=== PATIENT | male | born 1980 | race Caucasian/White ===

== ENCOUNTER 2025-05-07 20:03 | Observation (INO) ==
[2025-05-07 21:00] LABS: BASOPHILS % (AUTO) 0.2 %; HCT - HEMATOCRIT 43.3 % (42.0-52.0); HGB - HEMOGLOBIN 14.8 g/dL (14.0-18.0); LYMPHOCYTES # (AUTO) 0.9 10^3/uL (1.5-3.5); LYMPHOCYTES % (AUTO) 6.1 %; MEAN CORPUSCULAR HEMOGLOBIN 30.2 pg (27.0-31.0); MEAN CORPUSCULAR HGB CONC 34.2 g/dL (32.0-36.0); MEAN CORPUSCULAR VOLUME 88.4 fL (80.0-94.0); MEAN PLATELET VOLUME 9.8 fL (7.4-11.4); MONOCYTES # (AUTO) 0.7 10^3/uL (0.0-1.0); MONOCYTES % (AUTO) 4.8 %; NEUTROPHILS # (AUTO) 12.3 10^3/uL (1.5-6.6); NEUTROPHILS % (AUTO) 88.5 %; PLT - PLATELET COUNT 273 10^3/uL (130-450); RED CELL DISTRIBUTION WIDTH 13.4 % (12.0-15.0); WHITE BLOOD COUNT 13.9 x10^3/uL (4.8-10.8)
--- NOTE | 2025-05-07 21:01 | ED Physician Documentation ---
PD HPI ABD PAIN Stated complaint Stated Complaint: N/V/D Chief complaint Chief Complaint: Abd Pain Additional information Additional information: HPI from patient. Patient complains of of 1-2 days of nausea and vomiting and increasingly frequent diarrhea. He has had 2 episodes of loss of bowel control. He has been having generalized abdominal cramping as well as fever Tmax 103.7. Patient is up-to-date on immunizations. He is nausea and vomiting progressed this evening to the point of not be able to tolerate any p.o. including sips of water. Denies history of similar symptoms. Has not noted any blood in vomitus nor in the stool, denies black/tarry stool. No recent [id number] travel, does not drink alcohol on heavy nor regular basis, does not take NSAIDs on regular basis. Meds/Allgy Home Medications Ambulatory Orders Medication Instructions Recorded Confirmed rizatriptan 10 mg disintegrating mg 05/07/25 tablet venlafaxine 150 mg mg PO 05/07/25 capsule,extended release 24 hr Allergies Allergies Allergy/AdvReac Type Severity Reaction Status Date / Time No Known Drug Allergies Allergy Verified 05/07/25 20:20 PFSH Active Problems All Active Problems (Updated 05/08/25 @ 05:24 by Nallely Multani MD) Sepsis (Acute) Hypertension (Acute) Acute colitis (Acute) Colitis (Acute) Social History Social History (Updated 05/08/25 @ 05:33 by Nallely Multani MD) Smoking Status: Former smoker If you are a former smoker, when did you quit? (Date/Year): 2010 Number of Years Smoked: 15 Do you dip or chew tobacco?: No Do you vape?: No Patient requests smoking cessation consult: No Initiate information on smoking cessation: No Level: Dependent Do you feel safe in your home environment?: Yes Suffered physical, verbal, emotional, or financial abuse?: No Exam Exam Vital Signs: Vital Signs x48h Temp Pulse Resp BP Pulse Ox 05/08/25 02:38 122/80 05/08/25 02:21 103 H 16 105/74 90 L 05/08/25 00:41 38.4 C H 95 16 118/77 95 Constitutional normal general appearance, no apparent distress and alert HENMT oral mucous membranes abnormal (dry) Respiratory breath sounds equal bilaterally, clear to auscultation bilaterally, no wheezes and no rales Cardiovascular normal heart rate noted, regular rhythm noted, no gallop, no rub, no murmur and no edema Gastrointestinal abdomen normal to inspection, abdomen soft to palpation, nontender to palpation, nondistended, normoactive bowel sounds and no hernia Genitourinary no CVA tenderness Skin skin color normal Results Vitals Vitals: Vital Signs - 24 hr 05/07/25 20:14 05/07/25 21:25 05/07/25 21:36 Temperature 39.2 C H Temperature Source Tympanic Pulse Rate 125 H 100 Respiratory Rate 18 20 Blood Pressure 120/81 126/80 O2 Saturation 95 93 O2 Source Room air Room air Pain Intensity 7 6 05/07/25 22:40 05/08/25 00:30 05/08/25 00:41 Temperature 38.4 C H Temperature Source Tympanic Pulse Rate 95 Respiratory Rate 16 Blood Pressure 118/77 O2 Saturation 95 O2 Source Room air Pain Intensity 3 6 5 05/08/25 02:07 05/08/25 02:07 05/08/25 02:21 Temperature Temperature Source Pulse Rate Respiratory Rate Blood Pressure O2 Saturation O2 Source Pain Intensity 6 7 5 05/08/25 02:21 05/08/25 02:38 Temperature Temperature Source Pulse Rate 103 H Respiratory Rate 16 Blood Pressure 105/74 122/80 O2 Saturation 90 L O2 Source Room air Pain Intensity 5 Oxygen O2 Source Room air Labs Labs: Laboratory Tests 05/07/25 05/07/25 05/07/25 20:40 21:14 22:30 WBC 13.9 H RBC 4.90 Hgb 14.8 Hct 43.3 MCV 88.4 MCH 30.2 MCHC 34.2 RDW 13.4 Plt Count 273 MPV 9.8 Neut # (Auto) 12.3 H Lymph # (Auto) 0.9 L Pleas[place] # (Auto) 0.7 Eos # (Auto) 0.0 Baso # (Auto) 0.0 Absolute Nucleated RBC 0.00 Nucleated RBC % 0.0 Sodium 132 L Potassium 4.0 Chloride 97 L Carbon Dioxide 27 Anion Gap 8.0 BUN 15 Creatinine 1.1 Estimated GFR (MDRD) 73 L Glucose 99 Calcium 9.5 Total Bilirubin 0.5 AST 19 ALT 19 Alkaline Phosphatase 34 L Total Protein 7.8 Albumin 4.4 Globulin 3.4 Albumin/Globulin Ratio 1.3 Lipase < 10 L Urine Color DARK YELLOW Urine Clarity CLEAR Urine pH 6.0 Ur Specific Argyle 1.025 Urine Protein 100 H Urine Glucose (UA) NEGATIVE Urine Ketones NEGATIVE Urine Occult Blood SMALL H Urine Nitrite NEGATIVE Urine Bilirubin NEGATIVE Urine Urobilinogen 0.2 (NORMAL) Ur Leukocyte Esterase NEGATIVE Urine RBC 0-5 Urine WBC 0-3 Ur Squamous Epith Cells RARE Squamous Urine Bacteria None Seen Ur Microscopic Review INDICATED Urine Culture Comments NOT INDICATED Nasal Adenovirus (PCR) NOT DETECTED Nasal B. parapertussis DNA (PCR) NOT DETECTED Nasal Coronavir 229E PCR NOT DETECTED Nasal Coronavir HKU1 PCR NOT DETECTED Nasal Coronavir NL63 PCR NOT DETECTED Nasal Coronavir OC43 PCR NOT DETECTED Nasal Enterovir/Rhinovir PCR NOT DETECTED Nasal Influenza B PCR NOT DETECTED Nasal Influenza A PCR NOT DETECTED Nasal Parainfluen 1 PCR NOT DETECTED Nasal Parainfluen 2 PCR NOT DETECTED Nasal Parainfluen 3 PCR NOT DETECTED Nasal Parainfluen 4 PCR NOT DETECTED Nasal RSV (PCR) NOT DETECTED Nasal B.pertussis DNA PCR NOT DETECTED Nasal C.pneumoniae (PCR) NOT DETECTED George Human Metapneumo PCR NOT DETECTED Nasal M.pneumoniae (PCR) NOT DETECTED Nasal SARS-CoV-2 (PCR) NOT DETECTED Stl C. diff Tox B Gene NEGATIVE Rads (name of study) CT A/P with IV contrast: Relevant Findings:: Prelim report reviewed and See rad report PD Medical Decision Making ED course Complexity details: reviewed results, re-evaluated patient, considered differential and d/w patient ED course: Patient is given total of 2 L normal saline IV during ED stay. He is given IV Toradol and 4 mg IV zofran. Fever 39.2 in triage, improved to 38.4, subsequently defervesced after PO tylenol. He is given a second dose of 4 mg IV Zofran later in stay for ongoing nausea. He reported inadequate relief of his abdominal cramping with the Toradol, thus given 4 mg IV morphine. Likewise, patient reports inadequate improvement and thus given 1 mg IV Dilaudid. He reported modest relief with this intervention. Mild leukocytosis (WBC 13.9), mild hyponatremia (sodium 132), normal LFTs, normal lipase. C. difficile negative, negative respiratory PCR panel. CT A/P with IV contrast demonstrates inflammation of the terminal ileum, cecum, ascending and transverse colon. I discussed this case with the [facility], request that I first discussed the case with GI to see if patient is appropriate for [facility] or would be appropriate for transfer to higher level of care. I discussed this case with Dr. David (on-call utility repairer for [facility]). He says patient does not need transfer to another facility and would be appropriate for admit to [facility]; he is aware that GI services are not available at [facility]. His recommendation is to repeat the colitis as infectious at this point rather than inflammatory. Further testing to determine if patient has IBD can be undertaken in the outpatient setting per Dr. David. I recontacted [facility] practitioner who will admit to hospitalist service [facility] Discharge Plan Discharge Patient Disposition: [facility] DC/Xfer Condition: Stable Clinical Impression: Colitis
[2025-05-07 21:09] LABS: ALBUMIN 4.4 g/dL (3.2-5.5); ALBUMIN/GLOBULIN RATIO 1.3 (1.0-2.2); ALKALINE PHOSPHATASE 34 IU/L (42-121); ALT ALANINE AMINOTRANSFERASE 19 IU/L (10-60); AST ASPARTATE AMINOTRANSFERASE 19 IU/L (10-42); BILIRUBIN,TOTAL 0.5 mg/dL (0.2-1.0); BUN - BLOOD UREA NITROGEN 15 mg/dL (6-20); CALCIUM 9.5 mg/dL (8.5-10.3); CARBON DIOXIDE - CO2 27 mmol/L (21-32); CHLORIDE 97 mmol/L (101-111); CREATININE 1.1 mg/dL (0.6-1.3); GFR - MDRD 73 (>89); GLUCOSE 99 mg/dL (74-104); SODIUM 132 mmol/L (135-145); TOTAL PROTEIN 7.8 g/dL (6.4-8.9)
[2025-05-07] MEDS: SODIUM CHLORIDE 0.9% 1,000 ML IV STA (21:10)
[2025-05-07 21:13] LABS: LIPASE < 10 U/L (11-82)
[2025-05-07] MEDS: KETOROLAC 30 MG/ML VIAL IVP STA (21:36)
[2025-05-07] MEDS: ONDANSETRON 4 MG/2 ML VIAL IVP STA (21:36)
[2025-05-07 22:35] LABS: BILIRUBIN,URINE NEGATIVE (NEGATIVE); GLUCOSE, URINE (UA) NEGATIVE (NEGATIVE); KETONES,URINE (UA) NEGATIVE (NEGATIVE); LEUKOCYTE ESTERASE, URINE NEGATIVE (NEGATIVE); NITRITE,URINE NEGATIVE (NEGATIVE); OCCULT BLOOD,URINE SMALL (NEGATIVE); PROTEIN,URINE 100 mg/dL (NEGATIVE); UROBILINOGEN,URINE 0.2 (NORMAL) E.U./dL (NORMAL)
[2025-05-07 22:47] LABS: CLARITY,URINE CLEAR (CLEAR)
[2025-05-07 22:59] LABS: BACTERIA,URINE None Seen /HPF (None Seen); RBC,URINE 0-5 /HPF (0-5); SQUAMOUS EPITHELIAL CELL,UR RARE Squamous (<= Few); WBC,URINE 0-3 /HPF (0-3)
[2025-05-07 23:26] LABS: B. PARAPERTUSSIS- RESP PCR PAN NOT DETECTED; B. PERTUSSIS- RESP PCR PANEL NOT DETECTED; C. PNEUMONIAE- RESP PCR PANEL NOT DETECTED; CORONAVIRUS 229E-RESP PCR NOT DETECTED; CORONAVIRUS HKU1-RESP PCR NOT DETECTED; CORONAVIRUS NL63-RESP PCR NOT DETECTED; CORONAVIRUS OC43-RESP PCR NOT DETECTED; HUMAN METAPNEUMOVIRUS NOT DETECTED; INFLUENZA A- RESP PCR PANEL NOT DETECTED; INFLUENZA B - RESP PCR PANEL NOT DETECTED; M. PNEUMONIAE- RESP PCR PANEL NOT DETECTED; PARAINFLUENZA VIRUS 1 NOT DETECTED; PARAINFLUENZA VIRUS 2 NOT DETECTED; PARAINFLUENZA VIRUS 4 NOT DETECTED; RHINOVIRUS/ENTEROVIRUS NOT DETECTED; RSV- RESP PCR PANEL NOT DETECTED; SARS-CoV-2 -RESP PCR PANEL NOT DETECTED
[2025-05-08] MEDS ORDERED: iohexoL-300 100 ML VIAL ONE (00:08)
[2025-05-08] MEDS: ONDANSETRON 4 MG/2 ML VIAL IVP STA (00:30)
[2025-05-08] MEDS: MORPHINE 2 MG/ML CARPUJECT IVP STA (00:30)
[2025-05-08] MEDS: iohexoL-300 100 ML VIAL IVP ONE (00:30)
[2025-05-08] MEDS: SODIUM CHLORIDE 0.9% 1,000 ML IV STA (00:31)
--- NOTE | 2025-05-08 01:11 | CT Report ---
PROCEDURE: CT Abdomen/Pelvis W INDICATIONS: abd. pain CONTRAST: [id number] TECHNIQUE: After the administration of intravenous contrast, a CT scan of the abdomen and pelvis was performed. Images were recorded and evaluated at appropriate window settings. Reformats: coronal and sagittal. For radiation dose reduction, the following was used: automated exposure control, adjustment of mA and/or kV according to patient size. COMPARISON: None. FINDINGS: Image quality: Diagnostic. Lower chest: Bibasilar atelectasis.. Liver: No solid mass. Gallbladder: No radiopaque stones or wall thickening. Biliary tree: No intrahepatic or extrahepatic dilation, accounting for age. Spleen: No splenomegaly. Pancreas: No pancreatic ductal dilation. Adrenals: No adrenal nodule. Kidneys and ureters: No hydronephrosis. No renal cystic lesion which requires follow up. No solid mass. Stomach, bowel and peritoneum: No gastric or small bowel dilation. No abnormal wall thickening. No pathologic free fluid. There is moderate circumferential wall thickening and pericolic inflammatory changes involving the terminal ileum, cecum, ascending colon, and transverse colon. There is mild inflammatory changes involving the proximal appendix which is otherwise normal in size. This is likely secondary to adjacent inflammatory changes of the colon. Lymph nodes: No central or retroperitoneal adenopathy. Vessels: No infrarenal aortic aneurysm. Patent portal vein. PELVIS Reproductive organs: Unremarkable. Bladder: No abnormal wall thickening. Pelvic lymph nodes: No pelvic adenopathy by size criteria. Bones: There are a few scattered nonspecific lytic lesions noted in the pelvis involving the bilateral iliac and heterogeneous appearance of the sacrum. No acute compression fracture seen. Other: No significant ventral or inguinal hernia. IMPRESSION: Inflammatory changes involving the terminal ileum, cecum, and ascending colon through the transverse colon. Findings are likely related to colitis either infectious or inflammatory etiology. Inflammatory etiology is favored given distribution of findings. Consider Crohn's disease. Mild secondary inflammatory changes involving the proximal appendix. Nonspecific lytic lesions noted in the bony pelvis. Consider further evaluation with outpatient MRI with and without contrast. Other chronic findings as above. Reviewed by: Donte Xavier MD on 05/08/2025 1:10 AM PDT Approved by: Donte Xavier MD on 05/08/2025 1:10 AM PDT Station ID: [id number]
[2025-05-08] MEDS: HYDROmorphone 1 MG/ML CARPUJECT IVP STA (02:07)
[2025-05-08] MEDS: ACETAMINOPHEN 325 MG TABLET PO STA (02:07)
--- NOTE | 2025-05-08 05:26 | HISTORY & PHYSICAL EXAMINATION ---
Chief Complaint Chief Complaint Chief Complaint: abdominal pain and diarrhea History of Present Illness Admitted From Admitted From:: home History Obtained From History obtained from: patient and ed physician Exam Limitations: telemedicine History of Present Illness HPI Comment/Other: Mr. Ontiveros presented with a history of hypertension and hyperlipidemia. He came to the ED for evaluation of fever and diarrhea of 2 day duration. he explained he was last well on Sunday. He ate some oysters and the following morning, he had abdominal pain and diarrhea. He describe the abdominal pain as cramping and exacerbated by any food or drink intake. Immediately after eating or drinking anything he would have uncontrolled diarrhea. He also stated he had measured fevers at home of up to 103. He has experience nausea, but no vomiting. he has not seen any blood or mucous in his stools. He explained no one else in his home ate the oysters or are sick. In the ED he was noted to be febrile and tachycardic. CT abdomen was consistent with colitis. Cdiff was negative. Case was discussed with GI who recommended continued conservative management and empiric antibiotics. Due to poor oral intake and fevers, I will admit for further management. This visit was performed using telehealth tools, including phone and live-video. patient provided verbal consent to complete this telemedicine encounter. During the time of this visit, patient was located at [facility] in the [facility], I was located in [place]. Review of Systems Status of ROS: 10 or more systems reviewed and unremarkable except as noted in history and below PFSH Active Problems All Active Problems (Updated 05/08/25 @ 05:24 by Nallely Multani MD) Sepsis (Acute) Hypertension (Acute) Acute colitis (Acute) Colitis (Acute) Social History Social History Smoking Status: Unknown if ever smoked Do you feel safe in your home environment?: Yes Suffered physical, verbal, emotional, or financial abuse?: No Meds/Allgy Home Medications Ambulatory Orders Medication Instructions Recorded Confirmed rizatriptan 10 mg disintegrating mg 05/07/25 tablet venlafaxine 150 mg mg PO 05/07/25 capsule,extended release 24 hr Allergies Allergies Allergy/AdvReac Type Severity Reaction Status Date / Time No Known Drug Allergies Allergy Verified 05/07/25 20:20 Exam Exam Vital Signs: Vital Signs x48h Temp Pulse Resp BP Pulse Ox 05/08/25 02:38 122/80 05/08/25 02:21 103 H 16 105/74 90 L 05/08/25 00:41 38.4 C H 95 16 118/77 95 05/07/25 21:25 100 20 126/80 93 physical examination as recorded was based on patient and staff report, as well as peripheral observation Constitutional no apparent distress Eyes PERRL Cardiovascular normal heart rate noted Gastrointestinal abdomen normal to inspection, abdomen soft to palpation, tender to palpation and nondistended Skin skin color normal and no jaundice Conclusion/Plan Problem List (1) Acute colitis: Plan: based on history, suspected food poisoning and bacterial gastroenteritis suspected. inflammatory can't be excluded based on imaging -ct abdomen and pelvis reviewed: demonstrated inflammatory changes of the colon, cecum and ileum - cdiff negative, additional stool studies pending -will continue with empiric broad antibiotics: ciprofloxacin and flagyl. monitor for clinical response and toxicity -will add probiotics as tolerated -monitor and replace electrolytes as needed. -advance diet as tolerated (2) Sepsis: Plan: patient met sepsis criteria on presentaiton: fever, tachycardia, leukocytsis and source -paramentera have improved with conservative managment -will continue with empiric antibiotics -cultures pending -trend parameter until resolved (3) Hypertension: Plan: home medicaiton reviewed -will resume as tolerated Lab Results Lab results reviewed: Yes 05/07/25 20:40 05/07/25 20:40 Core Measures Anticipated LOS I expect patient to be DC'd or transferred within 96 hours.: Yes DVT/VTE - Prophylaxis VTE/DVT Device ordered at admit?: Yes Telemedicine Consult Details Provider Location & Consult Time Telemedicine consultation conducted via videoconferencing?: Yes
[2025-05-08] MEDS: oxyCODONE 5 MG TABLET PO PRN (06:12)
[2025-05-08] MEDS: ONDANSETRON 4 MG/2 ML VIAL IVP PRN (06:15)
[2025-05-08] MEDS: SODIUM CHLORIDE 0.9% 1,000 ML IV SCH (06:17)
[2025-05-08] MEDS: CIPROFLOXACIN 400 MG/200 ML 400 MG/200 ML BAG IV SCH (06:22)
[2025-05-08] MEDS: MORPHINE 2 MG/ML CARPUJECT IVP PRN (06:56)
[2025-05-08 07:41] LABS: HCT - HEMATOCRIT 37.9 % (42.0-52.0); HGB - HEMOGLOBIN 12.6 g/dL (14.0-18.0); MEAN CORPUSCULAR HEMOGLOBIN 30.1 pg (27.0-31.0); MEAN CORPUSCULAR HGB CONC 33.2 g/dL (32.0-36.0); MEAN CORPUSCULAR VOLUME 90.7 fL (80.0-94.0); MEAN PLATELET VOLUME 9.4 fL (7.4-11.4); RED BLOOD COUNT 4.18 10^6/uL (4.70-6.10); RED CELL DISTRIBUTION WIDTH 13.3 % (12.0-15.0); WHITE BLOOD COUNT 10.3 x10^3/uL (4.8-10.8)
[2025-05-08 07:55] LABS: ALBUMIN 3.5 g/dL (3.2-5.5); ALBUMIN/GLOBULIN RATIO 1.3 (1.0-2.2); BILIRUBIN,TOTAL 0.3 mg/dL (0.2-1.0); CALCIUM 8.3 mg/dL (8.5-10.3); CREATININE 1.1 mg/dL (0.6-1.3); MAGNESIUM 1.7 mg/dL (1.7-2.3); POTASSIUM 3.8 mmol/L (3.5-4.5); TOTAL PROTEIN 6.2 g/dL (6.4-8.9)
[2025-05-08] MEDS: metroNIDAZOLE 500 MG/100 ML 500 MG/100 ML BAG IV SCH (08:13)
[2025-05-08] MEDS: SODIUM CHLORIDE FLUSH 0.9% 10 ML SYRINGE IVP SCH (08:14)
[2025-05-08] MEDS: ACETAMINOPHEN 325 MG TABLET PO PRN (08:33)
[2025-05-08] MEDS: SODIUM CHLORIDE FLUSH 0.9% 10 ML SYRINGE IVP PRN (11:07)
--- NOTE | 2025-05-08 11:37 | PHARMACY PROGRESS NOTE ---
Best Possible Medication History Admit Date and Time: 05/08/25 [id number] Home Medications Medication Instructions Recorded Confirmed Type rizatriptan 10 mg disintegrating 10 mg PO DAILY 05/08/25 History tablet lisinopril 40 mg tablet 40 mg PO DAILY 05/08/2504/20 History Processed by: Pharmacy Medications reviewed in ED?: No Medication History completed: Yes Patient Interview: Completed Secondary Source(s): Pharmacy records and Insurance records [facility] Statement: As the person ultimately responsible for medication therapy, providers are able to order a medication from an existing home medication list in [facility] via the "Reconcile Routine" prior to Confirmation of that medication by application support analyst. Such practice is discouraged except when the physician, in their clinical judgment, deems that a medical need exists for a medication without regard to previous use.
[2025-05-08] MEDS ORDERED: PROCHLORPERAZINE 10 MG/2 ML VIAL IVP PRN (11:55)
[2025-05-08] MEDS: PSYLLIUM PACKET PO SCH (12:33)
[2025-05-09 01:22] VITALS: O2SAT 96
[2025-05-09 08:09] LABS: ADENOVIRUS F 40/41 Not Detected (Not Detected); ASTROVIRUS Not Detected (Not Detected); C DIFFICILE TOXIN A/B Not Detected (Not Detected); CAMPYLOBACTER Detected (Not Detected); CRYPTOSPORIDIUM Not Detected (Not Detected); CYCLOSPORA CAYETANENSIS Not Detected (Not Detected); ENTAMOEBA HISTOLYTICA Not Detected (Not Detected); ENTEROAGGREGATIVE E COLI Not Detected (Not Detected); ENTEROPATHOGENIC E COLI Not Detected (Not Detected); ENTEROTOXIGENIC E COLI Not Detected (Not Detected); GIARDIA LAMBLIA Not Detected (Not Detected); NOROVIRUS GI/GII Not Detected (Not Detected); PLESIOMONAS SHIGELLOIDES Not Detected (Not Detected); ROTAVIRUS A Not Detected (Not Detected); SALMONELLA Not Detected (Not Detected); SAPOVIRUS Not Detected (Not Detected); SHIGA-TOXIN-PRODUCING E COLI Not Detected (Not Detected); SHIGELLA/ENTEROINVASIVE E COLI Not Detected (Not Detected); VIBRIO Not Detected (Not Detected); VIBRIO CHOLERAE Not Detected (Not Detected); YERSINIA ENTEROCOLITICA Not Detected (Not Detected)
[2025-05-09 08:25] VITALS: BP 116/74; TEMP 98.6
[2025-05-09 09:04] LABS: HCT - HEMATOCRIT 39.2 % (42.0-52.0); HGB - HEMOGLOBIN 12.6 g/dL (14.0-18.0); MEAN CORPUSCULAR HEMOGLOBIN 29.3 pg (27.0-31.0); MEAN CORPUSCULAR HGB CONC 32.1 g/dL (32.0-36.0); MEAN CORPUSCULAR VOLUME 91.2 fL (80.0-94.0); MEAN PLATELET VOLUME 9.7 fL (7.4-11.4); RED BLOOD COUNT 4.3 10^6/uL (4.70-6.10); RED CELL DISTRIBUTION WIDTH 13.6 % (12.0-15.0); WHITE BLOOD COUNT 5.4 x10^3/uL (4.8-10.8)
[2025-05-09 09:27] LABS: CALCIUM 8.6 mg/dL (8.5-10.3); CREATININE 0.9 mg/dL (0.6-1.3); CRP - C-REACTIVE PROTEIN 24.7 mg/dL (<0.5); POTASSIUM 3.5 mmol/L (3.5-4.5)
--- NOTE | 2025-05-09 11:28 | Discharge Summary ---
"Discharge Summary Admit Date: 05/08/25 Discharge Date: 05/09/25 Discharging Provider: Dr. Cynthia Mckeon Code Status: Attempt Resuscitation Discharge Facility Name: Home DIAGNOSES Admission Diagnoses: Acute colitis Sepsis Hypertension Discharge Diagnoses with Status of Each Condition: Acute colitis secondary to Campylobacterpatient presented with diarrhea, fevers, chills. Stool studies were positive for Campylobacter. He received IV fluids. He was initially started on antibiotics, which have now been stopped. His bowel movements are becoming more formed. He is able to tolerate p.o. intake. He was advised to closely follow-up with his primary care provider, but is now suitable for discharge. Sepsis secondary to aboveresolved. Hypertensioncontinue lisinopril. HPI History of Present Illness: Per Dr. Multani: Mr. Ontiveros presented with a history of hypertension and hyperlipidemia. He came to the ED for evaluation of fever and diarrhea of 2 day duration. he explained he was last well on Sunday. He ate some oysters and the following morning, he had abdominal pain and diarrhea. He describe the abdominal pain as cramping and exacerbated by any food or drink intake. Immediately after eating or drinking anything he would have uncontrolled diarrhea. He also stated he had measured fevers at home of up to 103. He has experience nausea, but no vomiting. he has not seen any blood or mucous in his stools. He explained no one else in his home ate the oysters or are sick. In the ED he was noted to be febrile and tachycardic. CT abdomen was consistent with colitis. Cdiff was negative. Case was discussed with GI who recommended continued conservative management and empiric antibiotics. Due to poor oral intake and fevers, I will admit for further management. This visit was performed using telehealth tools, including phone and live-video. patient provided verbal consent to complete this telemedicine encounter. During the time of this visit, patient was located at [facility] in the [facility], I was located in [place]. CONSULTS | PROCEDURES Procedures: CT Abd/Pelvis HOSPITAL COURSE Hospital Course: Patient is a 44-year-old male with a history of hypertension who presented with severe dehydration, diarrhea after eating oysters. He also had fevers and chills. Stool studies were sent, which came back positive for Campylobacter. CT showed diffuse inflammation within the colon. He was initially on ciprofloxacin and Flagyl, which now have been stopped since his stool studies returned. He received adequate IV hydration. His stools are becoming more formed. He is tolerating p.o. intake. He was advised to continue adequate hydration at home. He was advised to return if he had any severe weakness, fevers, chills, etc. He was also advised to follow-up with his primary care provider closely on discharge. ALLERGIES Allergies Allergy/AdvReac Type Severity Reaction Status Date / Time No Known Drug Allergies Allergy Verified 05/07/25 20:20 MEDICATIONS Ambulatory Orders Medication Instructions Recorded Confirmed rizatriptan 10 mg disintegrating 10 mg PO DAILY PRN mi graine 05/07/25 05/09/25 tablet headache lisinopril 40 mg tablet 40 mg PO DAILY 05/08/2504/20 PHYSICAL EXAM AT DISCHARGE Vital Signs: Vital Signs x48h Temp Pulse Resp BP Pulse Ox 05/09/25 08:24 98.6 F 69 18 116/74 96 General Appearance: positive No acute distress and Alert; negative Anxious Eyes Bilateral: positive Normal inspection, PERRL and EOMI ENT: positive ENT inspection nml, Pharynx nml and No signs of dehydration Neck: positive Nml inspection, Thyroid nml, No JVD and Trachea midline Respiratory: positive Chest non-tender, No respiratory distress and Breath sounds nml; negative Wheezes, Rales or Rhonchi Cardiovascular: positive Regular rate & rhythm, No murmur, No gallop and Irregularly irregular Peripheral Pulses: positive 2+ Abdomen: positive Non-tender, No organomegaly, Nml bowel sounds and No distention; negative Guarding Back: positive Nml inspection; negative CVA tenderness (R) or CVA tenderness (L) Skin: positive Color nml, No rash, Warm and Dry Extremities: positive Non-tender, Full ROM, Nml appearance and No pedal edema Neurologic/Psychiatric: positive Oriented x3, Motor nml and Mood/affect nml LABS 05/09/25 08:56 05/09/25 08:56 DIAGNOSTIC IMAGING Diagnostic Imaging Results: Final report reviewed SEPSIS Current Stage of Sepsis: Resolved FOLLOW UP Follow Up: Follow up with PCP. TIME SPENT Time Spent in Discharge (Minutes): 35 Discharge Plan Discharge Patient Disposition: Home, Self Care Condition: Stable Prescriptions: Continued rizatriptan 10 mg tablet,disintegrating 10 mg PO DAILY PRN (Reason: migraine headache) lisinopril 40 mg tablet 40 mg PO DAILY Diet: Soft Interventions: Belongings Inventory Last Done: 05/08/25 15:06 Discharge Last Done: 05/09/25 13:13 Discharge Checklist - Nursing Last Done: 05/09/25 13:13 Health Concerns: You came in for severe diarrhea, abdominal cramping, fevers and chills. You are found to have a Campylobacter infection, likely from infected poultry or cross- contamination. We initially had you on some antibiotics while you are here, and we made sure that we hydrated you adequately. Please take it easy over the next few days, and advance your diet slowly as tolerated. You feel very weak, or your fevers and chills return, you or you feel severely weak, please feel free to return to the emergency room. We are glad you are feeling better, thank you for allowing us to take care of you. Print Language: Italian Patient Instructions: Campylobacter Infect Stand Alone Forms: PCP List"
== END 2025-05-09 12:55 | disposition home or self-care (01) ==
LOC: MS3 20:03 → ED 20:03 → MS3 05-08 05:58
PROVIDERS: ADMIT Hospitalist; ATTEND Hospitalist
DX: E87.1 Hypo-osmolality and hyponatremia; A41.89 Other specified sepsis; D72.829 Elevated white blood cell count, unspecified; Z87.891 Personal history of nicotine dependence; Z79.899 Other long term (current) drug therapy; E78.5 Hyperlipidemia, unspecified; A04.5 Campylobacter enteritis; I10 Essential (primary) hypertension